=== PATIENT | female | born 1980 | race Caucasian/White ===

== ENCOUNTER 2016-05-07 17:01 | Emergency (ER) | payer OTHER, MEDICARE ==
--- NOTE | 2016-05-07 18:12 | CT ---
HEAD CT WITHOUT CONTRAST HISTORY: Status post fall, struck left side of head. No intravenous contrast administered. Contiguous axial images acquired from skull base to vertex. COMPARISON: MRI from 02/08/2015 BRAIN VOLUME:Grossly stable, kay cisterna magna VENTRICULAR SIZE: Mild ventriculomegaly without lei hydrocephalus. FOCAL MASS EFFECT:None. ACUTE INTRACRANIAL HEMORRHAGE:None. CALVARIUM:Grossly intact. VISIBLE PARANASAL SINUSES AND MASTOID AIR CELLS:Grossly clear. IMPRESSION: No gross mass effect, depressed calvarial fracture, or acute intracranial hemorrhage. Results were electronically transmitted to the electronic medical record at 05/07/2016, 1808 hours.
--- NOTE | 2016-05-07 18:15 | CT ---
ORBIT CT WITHOUT CONTRAST HISTORY: Struck right side of head. No intravenous contrast administered contiguous axial images acquired through the maxillofacial structures. FINDINGS: PTERYGOID PLATES: Grossly intact. ZYGOMATIC ARCHES: Grossly intact. NASAL BONES: Intact. NASAL SEPTUM: Rightward septal deviation with minor spurring, likely long-standing. PARANASAL SINUSES: Minor ethmoid and frontal mucosal thickening, no air-fluid levels. FRACTURE: No displaced fracture identified. AIRWAY: Visible pharynx is patent. ORBITS: No evidence of lens dislocation. No evidence of retrobulbar hematoma. VISIBLE INTRACRANIAL COMPARTMENT: No gross mass effect. IMPRESSION: No displaced fracture noted. No retrobulbar hematoma. Results were electronically transmitted to the electronic medical record at 05/07/2016, 1811 hours.
== END 2016-05-07 18:38 | disposition home or self-care (01) ==
LOC: ED 17:01
DX: H05.232 Hemorrhage of left orbit (principal); W18.39XA Other fall on same level, initial encounter; Y93.89 Activity, other specified; Y92.238 Other place in hospital as the place of occurrence of the external cause; Z87.39 Personal history of other diseases of the musculoskeletal system and connective tissue